=== PATIENT | female | born 1935 | race Caucasian/White ===

== ENCOUNTER 2024-11-12 05:59 | Inpatient (IN) ==
[2024-11-12] MEDS: DIPH,PERTUSS(ACELL),TET VAC/PF 0.5 ML SYRINGE IM ONE (06:21)
[2024-11-12] MEDS: ceFAZolin 1 GM VIAL IV ONE ×2 (06:23→15:27)
[2024-11-12 06:43] LABS: Basophils # (Auto) 0.05 K/mcL (0.00-0.30); Basophils % (Auto) 0.6 % (0.0-2.0); Eosinophils # (Auto) 0.32 K/mcL (0.00-0.70); Eosinophils % (Auto) 3.8 % (0.0-7.0); Hematocrit 43.1 % (34.1-44.9); Hemoglobin 13.6 g/dL (11.2-15.7); Lymphocytes # (Auto) 2.18 K/mcL (1.50-4.80); Lymphocytes % (Auto) 25.6 % (15.5-49.0); Mean Cell Volume 95.8 fL (80.0-100.0); Mean Corpuscular HGB Conc 31.6 g/dL (31.0-36.0); Monocytes # (Auto) 0.62 K/mcL (0.10-0.90); Monocytes % (Auto) 7.3 % (1.0-12.0); Neutrophils % (Auto) 62.5 % (38.0-78.0); Platelet Count 202 K/mcL (140-440); Red Cell Distribution Width 13.1 % (11.5-14.5); WBC 8.5 K/mcL (4.5-11.0)
[2024-11-12 07:04] LABS: Prothrombin Time 13.8 sec (11.9-14.5)
[2024-11-12 07:09] LABS: ALT/SGPT 10 U/L (<40); AST/SGOT 23 U/L (<32); Albumin 4.1 gm/dL (3.2-5.2); Albumin/Globulin Ratio 1.3 (1.0-2.3); Alkaline Phosphatase 139 U/L (39-117); Bilirubin,Total 0.4 mg/dL (0.1-1.0); Blood Urea Nitrogen 31 mg/dL (8-23); Calcium 9.5 mg/dL (8.6-10.4); Carbon Dioxide 23 mmol/L (22-30); Chloride 106 mmol/L (96-108); Globulin 3.2 gm/dL (2.2-3.7); Glomerular Filtration Rate 50; Glucose 149 mg/dL (70-105); Potassium 4.4 mmol/L (3.3-5.1); Sodium 141 mmol/L (133-145)
[2024-11-12] MEDS: fentaNYL 100 MCG/2 ML VIAL IV PRN (07:11)
[2024-11-12 07:41] LABS: Partial Thromboplastin Time 24.6 sec (20.0-37.0)
[2024-11-12] MEDS: 0.9 % SODIUM CHLORIDE 1,000 ML IV SCH (07:55)
[2024-11-12] MEDS: HYDROmorphone 0.5 MG/0.5 ML SYRINGE IV PRN (07:55)
[2024-11-12] MEDS: ONDANSETRON 4 MG/2 ML VIAL IV ONE ×2 (07:56→15:27)
[2024-11-12] MEDS: NALOXONE HCL 0.4 MG/ML VIAL IV ONE (14:24)
[2024-11-12] MEDS ORDERED: LIDOCAINE 2% PF 5 ML VIAL ONE (14:56)
[2024-11-12] MEDS ORDERED: ePHEDrine 50 MG/5 ML SYRINGE (ANEST) IV ONE (14:56)
[2024-11-12] MEDS ORDERED: GLYCOPYRROLATE 0.2 MG/ML VIAL IV ONE (14:56)
[2024-11-12] MEDS ORDERED: ONDANSETRON 4 MG/2 ML VIAL ONE (14:56)
[2024-11-12] MEDS ORDERED: DEXAMETHASONE 10 MG/ML VIAL ONE (14:56)
[2024-11-12] MEDS ORDERED: TRANEXAMIC ACID 1,000 MG/10 ML VIAL ONE (14:56)
[2024-11-12] MEDS ORDERED: METOCLOPRAMIDE 10 MG/2 ML VIAL ONE (14:56)
[2024-11-12] MEDS ORDERED: PROPOFOL 200 MG/20 ML VIAL IV ONE (14:58)
[2024-11-12] MEDS ORDERED: KETAMINE 50 MG/ML ML ONE (14:59)
[2024-11-12] MEDS: KETOROLAC 30 MG/ML VIAL IV ONE (15:27)
[2024-11-12] MEDS: ceFAZolin 2 GM in DEXTROSE 5% IN WATER 50 ML IV SCH (16:35)
[2024-11-12] MEDS: VANCOMYCIN 1 GM VIAL TOPICAL SCH (18:54)
[2024-11-12] MEDS ORDERED: MAGNESIUM HYDROXIDE 30 ML ORAL.SUSP PO PRN (19:08)
[2024-11-12] MEDS ORDERED: BENZOCAINE/MENTHOL 1 LOZENGE PO PRN (19:08)
[2024-11-12] MEDS ORDERED: FLEETS ADULT 1 DOSE ENEMA PR PRN (19:08)
[2024-11-12] MEDS ORDERED: BISACODYL 10 MG SUPP.RECT PR PRN (19:08)
[2024-11-12] MEDS ORDERED: POLYETHYLENE GLYCOL 3350 17 GM PACKET PO PRN (19:08)
[2024-11-12] MEDS ORDERED: LABETALOL HCL 20 MG/4 ML VIAL IV ONE (19:12)
[2024-11-12] MEDS ORDERED: IPRATROPIUM/ALBUTEROL 3 ML AMPUL.NEB NEB PRN (19:13)
[2024-11-12] MEDS: LACTATED RINGERS 1,000 ML IV SCH ×2 (19:50→20:59)
[2024-11-12] MEDS: ceFAZolin 1 GM VIAL IV SCH ×2 (20:59→22:57)
[2024-11-12] MEDS: 0.9 % SODIUM CHLORIDE 10 ML SYRINGE IV SCH (22:47)
[2024-11-12] MEDS: ASPIRIN 81 MG TAB.CHEW CHEWED SCH (22:55)
[2024-11-12] MEDS: DOCUSATE SODIUM 100 MG CAPSULE PO SCH (22:56)
[2024-11-12] MEDS: MEMANTINE 10 MG TABLET PO SCH (22:56)
[2024-11-12] MEDS: SENNOSIDES 1 TABLET PO SCH (22:56)
[2024-11-13] MEDS: ONDANSETRON 4 MG/2 ML VIAL IV PRN (04:44)
[2024-11-13] MEDS: CARVEDILOL 6.25 MG TABLET PO SCH (08:21)
[2024-11-13] MEDS ORDERED: POTASSIUM CHLORIDE 20 MEQ TABLET PO PRN ×2 (15:33)
[2024-11-13] MEDS ORDERED: POTASSIUM CHLORIDE 40 MEQ in DEXTROSE 5% IN WATER 500 ML IV PRN (15:33)
[2024-11-13] MEDS ORDERED: MAGNESIUM SULFATE 2 GM/50 ML BAG IV PRN (15:33)
[2024-11-13] MEDS ORDERED: IPRATROPIUM/ALBUTEROL 3 ML AMPUL.NEB NEB PRN (15:33)
[2024-11-13] MEDS ORDERED: ENALAPRILAT 1.25 MG/ML VIAL IV PRN (15:33)
[2024-11-13] MEDS: HEPARIN 5,000 UNIT/ML VIAL SQ SCH (20:36)
[2024-11-13] MEDS: HYDROcodone/APAP 5/325MG TABLET PO PRN (21:23)
[2024-11-13] MEDS ORDERED: HALOPERIDOL LACTATE 5 MG/ML VIAL IV PRN (22:05)
[2024-11-13] MEDS: OLANZapine 5 MG TABLET PO SCH (22:14)
[2024-11-14] MEDS ORDERED: NON FORMULARY MEDICATION 1 DOSE MISCELL (Aspirin [Adult Low Dose Aspirin] 81 mg tablet,del PO SCH (09:00)
[2024-11-14] MEDS: LISINOPRIL 20 MG TABLET PO SCH (09:20)
[2024-11-14] MEDS: SERTRALINE 50 MG TABLET PO SCH (09:20)
[2024-11-14] MEDS: amLODIPine 10 MG TABLET PO SCH (09:21)
[2024-11-14] MEDS: HALOPERIDOL LACTATE 5 MG/ML VIAL IV SCH (19:08)
[2024-11-15] MEDS: hydrALAZINE 20 MG/ML VIAL IV PRN (04:00)
[2024-11-16 04:36] VITALS: O2SAT 100
[2024-11-16 12:10] VITALS: TEMP 97.9
== END 2024-11-16 12:42 | DRG 512 ==
LOC: ED 05:59 → MEDSUR 16:06 → SUR 16:06 → MEDSUR 19:52
PROVIDERS: ADMIT Orthopaedic Surgery; ATTEND Internal Medicine